=== PATIENT | male | born 1945 | race Caucasian/White ===

== ENCOUNTER 2023-12-02 20:01 | Inpatient (IN) | payer MEDICARE ==
[~2023-12-02] VITALS: Ht 170.2 cm; Wt 116.2 kg
[~2023-12-02 20:01] MED LIST: ROPIVACAINE 0.5% 5 MG/ML 30 ML SDV ONE
[2023-12-02] MEDS ORDERED: DEXTROSE 50% SYRINGE 50 ML IV ONE (20:24)
[2023-12-02] MEDS ORDERED: DEXTROSE 5%/0.45% SOD CHL 1,000 ML IV ONE (20:24)
[2023-12-02] MEDS: DEXTROSE 50% SYRINGE 50 ML IV STA ×2 (20:30→22:07)
[2023-12-02] MEDS: DEXTROSE 5%/0.45% SOD CHL 1,000 ML IV ONE (20:31)
[2023-12-02] MEDS ORDERED: SODIUM CHLORIDE 0.9% 1000ML 1,000 ML ONE (20:37)
[2023-12-02] MEDS: SODIUM CHLORIDE 0.9% 1000ML 1,000 ML IV ONE (20:37)
[2023-12-02 20:57] LABS: BASOPHILS % 0.2 % (0.0-1.0); EOSINOPHILS % 0.3 % (0.0-6.0); HEMATOCRIT 28.6 % (38.2-49.6); HEMOGLOBIN 9.3 g/dL (14.0-18.0); LYMPHOCYTES # (AUTO) 1.2 (1.0-3.2); LYMPHOCYTES % 12.7 % (18.0-39.1); MEAN CORPUSCULAR HEMOGLOBIN 25.1 pg (28-32); MEAN CORPUSCULAR HGB CONC 32.5 g/dL (31-35); MEAN CORPUSCULAR VOLUME 77.1 fL (81-99); MONOCYTES # (AUTO) 0.6 (0.2-0.8); MONOCYTES % 6.2 % (4.4-11.3); NEUTROPHILS # (AUTO) 7.6 (2.1-6.9); PLATELET COUNT 329 x10e3/uL (140-360); RED BLOOD COUNT 3.71 x10e6/uL (4.3-5.7); RED CELL DISTRIBUTION WIDTH 16.6 % (11.7-14.4); WHITE BLOOD COUNT 9.51 x10e3/uL (4.8-10.8)
[2023-12-02 21:24] LABS: ALBUMIN 2.9 g/dL (3.5-5.0); ALBUMIN/GLOBULIN RATIO 0.6 (0.8-2.0); ANION GAP 17.5 mmol/L (8-16); BILIRUBIN,TOTAL 0.4 mg/dL (0.2-1.2); CALCIUM 9.2 mg/dL (8.4-10.2); CREATININE, SERUM 7.42 mg/dL (0.72-1.25); TOTAL PROTEIN 7.5 g/dL (6.5-8.1)
[2023-12-02 21:26] LABS: POTASSIUM 6.5 mmol/L (3.5-5.1)
[2023-12-02] MEDS: Vancomycin IV 1 GM in SODIUM CHLORIDE 0.9% 250ML 250 ML IV ONE (21:34)
[2023-12-02] MEDS: SODIUM BICARBONATE 8.4% INJ 50 ML SYR IV STA (22:04)
[2023-12-02] MEDS: CALCIUM CHLORIDE 10% 1.36 MEQ/ML 10ML SYR IV STA (22:05)
[2023-12-02] MEDS: INSULIN REGULAR, HUMAN 100 UNIT/1 ML IV ONE (22:08)
[2023-12-02] MEDS: SOD POLYSTYRENE SULFONATE SUSP 15 GM/60 ML BTL PO ONE (22:09)
[2023-12-02] MEDS ORDERED: DEXTROSE 50% SYRINGE 50 ML IV PRN (22:45)
[2023-12-02] MEDS ORDERED: SODIUM CHLORIDE FLUSH 10 ML SYR INJ PRN (22:45)
[2023-12-02] MEDS ORDERED: ONDANSETRON HCL INJ 2MG/ML 2ML 2 MG/ML VIAL IV PRN (22:45)
[2023-12-02] MEDS ORDERED: SODIUM BICARB 4.2% 150 MEQ in DEXTROSE 5% 1,000 ML IV SCH (22:45)
[2023-12-02] MEDS ORDERED: DEXTROSE 5% 1,000 ML IV ONE (23:01)
[2023-12-02 23:10] LABS: BILIRUBIN,URINE NEGATIVE (NEGATIVE); CLARITY,URINE CLEAR (CLEAR); COLOR,URINE YELLOW (YELLOW); GLUCOSE, URINE NEGATIVE (NEGATIVE); KETONES,URINE NEGATIVE (NEGATIVE); LEUKOCYTE ESTERASE ,URINE NEGATIVE (NEGATIVE); NITRITE,URINE NEGATIVE (NEGATIVE); PH,URINE 5.5 (5 - 7); PROTEIN,URINE DIPSTICK 1+ (NEGATIVE); URINE UROBILINOGEN 0.2 mg/dL (0.2 - 1)
[2023-12-02] MEDS: SODIUM BICARBONATE 8.4% SYRING 150 ML in DEXTROSE 5% 1,000 ML IV SCH (23:24)
[2023-12-02 23:44] LABS: BACTERIA,URINE MODERATE /HPF; EPITHELIAL CELLS,URINE FEW /LPF; RBC,URINE 0-5 /HPF (0-5); WBC,URINE (MAN) 0-5 /HPF (0-5)
[2023-12-02 23:45] VITALS: PULSE 95; RESP 15; O2SAT 92
[2023-12-02 23:51] VITALS: BP 155/58; PULSE 115; RESP 21; O2SAT 94
[2023-12-03] VITALS (32 sets, daily range): BP systolic 89–166; BP diastolic 39–113; PULSE 97–119; RESP 13–23; TEMP 97.4–98.7; O2SAT 90–100
[2023-12-03] MEDS ORDERED: ATORVASTATIN CA20 MG PO (00:38)
[2023-12-03] MEDS ORDERED: AMLODIPINE BESY10 MG PO (00:43)
[2023-12-03] MEDS ORDERED: GLIPIZIDE ER5 MG PO (00:43)
[2023-12-03] MEDS ORDERED: BENAZEPRIL HCL10 MG PO (00:43)
[2023-12-03] MEDS ORDERED: ASPIRIN81 MG PO (00:43)
[2023-12-03] MEDS ORDERED: ELIQUIS5 MG PO (00:43)
[2023-12-03] MEDS ORDERED: LASIX20 MG PO (00:43)
[2023-12-03] MEDS ORDERED: METOPROLOL TART25 MG PO (00:43)
[2023-12-03] MEDS ORDERED: PIOGLITAZONE HC45 MG PO (00:43)
[2023-12-03] MEDS ORDERED: TRINTELLIX10 MG PO (00:43)
[2023-12-03 06:41] LABS: BASOPHILS % 0.2 % (0.0-1.0); EOSINOPHILS % 0.4 % (0.0-6.0); HEMATOCRIT 28.1 % (38.2-49.6); HEMOGLOBIN 8.9 g/dL (14.0-18.0); LYMPHOCYTES # (AUTO) 1.2 (1.0-3.2); LYMPHOCYTES % 11.5 % (18.0-39.1); MEAN CORPUSCULAR HEMOGLOBIN 24.3 pg (28-32); MEAN CORPUSCULAR HGB CONC 31.7 g/dL (31-35); MEAN CORPUSCULAR VOLUME 76.8 fL (81-99); MONOCYTES # (AUTO) 1.1 (0.2-0.8); MONOCYTES % 10.2 % (4.4-11.3); NEUTROPHILS # (AUTO) 8.1 (2.1-6.9); PLATELET COUNT 288 x10e3/uL (140-360); RED BLOOD COUNT 3.66 x10e6/uL (4.3-5.7); RED CELL DISTRIBUTION WIDTH 16.1 % (11.7-14.4); WHITE BLOOD COUNT 10.54 x10e3/uL (4.8-10.8)
[2023-12-03 07:13] LABS: ALBUMIN 2.4 g/dL (3.5-5.0); ALBUMIN/GLOBULIN RATIO 0.6 (0.8-2.0); ANION GAP 16.6 mmol/L (8-16); BILIRUBIN,TOTAL 0.5 mg/dL (0.2-1.2); CREATININE, SERUM 6.24 mg/dL (0.72-1.25); TOTAL PROTEIN 6.3 g/dL (6.5-8.1)
[2023-12-03 07:14] LABS: POTASSIUM 5.6 mmol/L (3.5-5.1)
[2023-12-03] MEDS: INSULIN REGULAR, HUMAN 100 UNIT/1 ML SQ SCH (07:30)
[2023-12-03 07:37] LABS: TROPONIN I 0.001 ng/mL (0-0.300)
[2023-12-03 08:39] LABS: INR 1.16; PROTHROMBIN TIME 15.6 seconds (11.9-14.5)
[2023-12-03] MEDS: DEXTROSE 50% SYRINGE 50 ML IV ONE (08:50)
[2023-12-03] MEDS: INSULIN REGULAR, HUMAN 100 UNIT/1 ML IV ONE (08:51)
[2023-12-03] MEDS ORDERED: ACETAMINOPHEN 325 MG TAB PO PRN (10:00)
[2023-12-03] MEDS ORDERED: LIDOCAINE HCL 1% LOCAL INJ 20 ML VIAL ONE (10:22)
[2023-12-03] MEDS ORDERED: SODIUM CHLORIDE 0.9% 500ML 500 ML ONE (10:23)
[2023-12-03] MEDS ORDERED: MIDAZOLAM HCL 2 MG/2 ML VIAL ONE (12:19)
[2023-12-03] MEDS ORDERED: HEPARIN SOD (PORCINE) 1000 UNIT/ML SDV ONE (12:19)
[2023-12-03] MEDS ORDERED: FENTANYL CITRATE/PF 100MCG/2 ML INJ ONE (12:20)
[2023-12-03] MEDS ORDERED: SODIUM CHLORIDE 0.9% 250ML 250 ML ONE (12:20)
[2023-12-03] MEDS ORDERED: SODIUM CHLORIDE 0.9% 1000ML 2,000 ML IV PRN (14:30)
[2023-12-03] MEDS ORDERED: ALBUMIN 25% 12.5GM 0.25 GM/ML BTL IV PRN (14:30)
[2023-12-03] MEDS ORDERED: MANNITOL 25% 12.5GM/50 ML VIAL IV PRN (14:30)
[2023-12-03] MEDS: SODIUM BICARBONATE 650 MG TAB PO SCH (14:33)
[2023-12-03 16:24] LABS: TROPONIN I 0.001 ng/mL (0-0.300)
[2023-12-03] MEDS: METOPROLOL TARTRATE 25 MG TAB PO SCH (17:29)
[2023-12-03] MEDS: FLUTICASONE PROPIONATE NASAL SPRAY NS SCH (17:29)
[2023-12-03] MEDS: ATORVASTATIN 20 MG TAB PO SCH (20:07)
[2023-12-04] VITALS (30 sets, daily range): BP systolic 93–131; BP diastolic 49–85; PULSE 73–117; RESP 11–26; TEMP 97.9–98.2; O2SAT 87–100
[2023-12-04 06:31] LABS: BASOPHILS % 0.5 % (0.0-1.0); EOSINOPHILS # (AUTO) 0.2 (0.0-0.4); EOSINOPHILS % 2.2 % (0.0-6.0); HEMATOCRIT 27.2 % (38.2-49.6); HEMOGLOBIN 9.4 g/dL (14.0-18.0); LYMPHOCYTES # (AUTO) 1.8 (1.0-3.2); LYMPHOCYTES % 20.9 % (18.0-39.1); MEAN CORPUSCULAR HEMOGLOBIN 25.3 pg (28-32); MEAN CORPUSCULAR HGB CONC 34.6 g/dL (31-35); MEAN CORPUSCULAR VOLUME 73.3 fL (81-99); MONOCYTES # (AUTO) 0.8 (0.2-0.8); MONOCYTES % 9.6 % (4.4-11.3); NEUTROPHILS # (AUTO) 5.8 (2.1-6.9); NEUTROPHILS % 66.5 % (38.7-80.0); PLATELET COUNT 281 x10e3/uL (140-360); RED BLOOD COUNT 3.71 x10e6/uL (4.3-5.7); RED CELL DISTRIBUTION WIDTH 16.3 % (11.7-14.4); WHITE BLOOD COUNT 8.76 x10e3/uL (4.8-10.8)
[2023-12-04 06:55] LABS: ANION GAP 14.9 mmol/L (8-16); CALCIUM 8.5 mg/dL (8.4-10.2); CREATININE, SERUM 3.07 mg/dL (0.72-1.25); POTASSIUM 3.9 mmol/L (3.5-5.1)
[2023-12-04 07:22] LABS: THYROID STIMULATING HORMONE 0.881 uIU/mL (0.350-4.940)
[2023-12-04] MEDS: ASPIRIN 81 MG CHEW TAB PO SCH (08:29)
[2023-12-04 13:34] LABS: HEPATITIS B SURFACE AG (P) Negative (Negative)
[2023-12-04] MEDS: CHOLESTYRAMINE 4 GM PACKET PO SCH (16:24)
[2023-12-04] MEDS: HEPARIN SOD (PORCINE) 5,000 UNIT/ML VIAL SC SCH (20:48)
[2023-12-04] MEDS: ALTEPLASE RECOMBINANT 2 MG/2 ML VIAL IV ONE (20:51)
[2023-12-05] VITALS (26 sets, daily range): BP systolic 103–143; BP diastolic 35–82; PULSE 87–111; RESP 11–24; TEMP 97.9–98.4; O2SAT 92–100
[2023-12-05 05:28] LABS: ALBUMIN 2.4 g/dL (3.5-5.0); ALBUMIN/GLOBULIN RATIO 0.6 (0.8-2.0); BILIRUBIN,TOTAL 0.6 mg/dL (0.2-1.2); CALCIUM 8.3 mg/dL (8.4-10.2); CREATININE, SERUM 2.2 mg/dL (0.72-1.25); TOTAL PROTEIN 6.5 g/dL (6.5-8.1)
[2023-12-05] MEDS ORDERED: SODIUM CHLORIDE 0.9% 250ML 250 ML ONE (08:34)
[2023-12-05] MEDS ORDERED: REGADENOSON 0.4 MG/5 ML SYR IV ONE (10:53)
[2023-12-05] MEDS ORDERED: AMIODARONE HCL 200 MG TAB ONE (14:28)
[2023-12-05] MEDS: AMIODARONE HCL 200 MG TAB PO ONE (14:31)
[2023-12-05] MEDS: AMIODARONE HCL 200 MG TAB PO SCH (16:08)
[2023-12-06] VITALS (27 sets, daily range): BP systolic 105–142; BP diastolic 46–76; PULSE 80–108; RESP 9–21; TEMP 97.2–98.4; O2SAT 96–100
[2023-12-06 06:24] LABS: ALBUMIN 2.5 g/dL (3.5-5.0); ALBUMIN/GLOBULIN RATIO 0.6 (0.8-2.0); ANION GAP 13.7 mmol/L (8-16); BILIRUBIN,TOTAL 0.5 mg/dL (0.2-1.2); CALCIUM 8.5 mg/dL (8.4-10.2); CREATININE, SERUM 1.85 mg/dL (0.72-1.25); POTASSIUM 3.7 mmol/L (3.5-5.1); TOTAL PROTEIN 6.8 g/dL (6.5-8.1)
[2023-12-06] MEDS ORDERED: AMIODARONE HCL 200 MG TAB ONE ×2 (08:02→16:30)
[2023-12-06] MEDS: TRIAMCINOLONE ACET 0.1% CREAM 15 GM TUBE TOP SCH (16:00)
[2023-12-06] MEDS ORDERED: METOPROLOL SUCCINATE 25 MG TAB XL ONE (16:30)
[2023-12-06] MEDS ORDERED: CHOLESTYRAMINE 4 GM PACKET ONE (16:30)
[2023-12-06] MEDS ORDERED: METOPROLOL TARTRATE 25 MG TAB ONE (17:08)
[2023-12-06] MEDS ORDERED: ATORVASTATIN 40 MG TAB ONE (20:10)
[2023-12-06] MEDS ORDERED: HEPARIN SOD (PORCINE) 1000 UNIT/ML SDV ONE (20:11)
[2023-12-06] MEDS ORDERED: INSULIN REGULAR, HUMAN 100 UNIT/1 ML ONE (20:12)
[2023-12-06] MEDS ORDERED: ATORVASTATIN 20 MG TAB ONE (20:18)
[2023-12-06] MEDS ORDERED: HEPARIN SOD (PORCINE) 5,000 UNIT/ML VIAL ONE (20:28)
[2023-12-07] VITALS (7 sets, daily range): BP systolic 117–129; BP diastolic 57–73; PULSE 81–92; RESP 17–20; TEMP 97–98.6; O2SAT 96–100
[2023-12-07 06:26] LABS: ANION GAP 15.7 mmol/L (8-16); CALCIUM 8.6 mg/dL (8.4-10.2); CREATININE, SERUM 2.21 mg/dL (0.72-1.25); POTASSIUM 3.7 mmol/L (3.5-5.1)
[2023-12-07 06:36] LABS: BASOPHILS # (AUTO) 0.1 (0.0-0.1); BASOPHILS % 0.6 % (0.0-1.0); EOSINOPHILS # (AUTO) 0.3 (0.0-0.4); EOSINOPHILS % 3.9 % (0.0-6.0); HEMATOCRIT 27.5 % (38.2-49.6); HEMOGLOBIN 8.9 g/dL (14.0-18.0); LYMPHOCYTES # (AUTO) 1.9 (1.0-3.2); LYMPHOCYTES % 23.3 % (18.0-39.1); MEAN CORPUSCULAR HEMOGLOBIN 24.7 pg (28-32); MEAN CORPUSCULAR HGB CONC 32.4 g/dL (31-35); MEAN CORPUSCULAR VOLUME 76.4 fL (81-99); MONOCYTES # (AUTO) 0.7 (0.2-0.8); MONOCYTES % 9.2 % (4.4-11.3); NEUTROPHILS % 61.9 % (38.7-80.0); PLATELET COUNT 262 x10e3/uL (140-360); RED CELL DISTRIBUTION WIDTH 15.9 % (11.7-14.4); WHITE BLOOD COUNT 8.04 x10e3/uL (4.8-10.8)
[2023-12-07] MEDS ORDERED: AMIODARONE HCL 200 MG TAB ONE ×2 (08:10→16:01)
[2023-12-07] MEDS ORDERED: ASPIRIN 81 MG ENTERIC COATED PO ONE (08:11)
[2023-12-07] MEDS ORDERED: HEPARIN SOD (PORCINE) 5,000 UNIT/ML VIAL ONE ×2 (08:11→20:40)
[2023-12-07] MEDS ORDERED: METOPROLOL SUCCINATE 25 MG TAB XL ONE (08:11)
[2023-12-07] MEDS ORDERED: HEPARIN SOD (PORCINE) 1000 UNIT/ML SDV ONE (09:20)
[2023-12-07] MEDS ORDERED: ASPIRIN 81 MG CHEW TAB ONE (09:21)
[2023-12-07] MEDS: LORAZEPAM 0.5 MG TAB PO SCH (09:21)
[2023-12-07] MEDS ORDERED: LORAZEPAM 0.5 MG TAB ONE (09:21)
[2023-12-07] MEDS ORDERED: CHOLESTYRAMINE 4 GM PACKET ONE (09:22)
[2023-12-07] MEDS: HEPARIN SOD (PORCINE) 1000 UNIT/ML SDV IV PRN (09:25)
[2023-12-07] MEDS ORDERED: SODIUM CHLORIDE 0.9% 1000ML 1,000 ML ONE (09:48)
[2023-12-07] MEDS ORDERED: METOPROLOL TARTRATE 25 MG TAB ONE (16:02)
[2023-12-07] MEDS ORDERED: ATORVASTATIN 40 MG TAB ONE (20:39)
[2023-12-07] MEDS ORDERED: ATORVASTATIN 20 MG TAB ONE (20:55)
[2023-12-08] VITALS (8 sets, daily range): BP systolic 118–139; BP diastolic 56–68; PULSE 71–82; RESP 17–20; TEMP 97.5–98.5; O2SAT 95–98
[2023-12-08] MEDS ORDERED: LIDOCAINE HCL 2% LOCAL INJ 5 ML SDV VIAL INJ ONE (10:43)
[2023-12-08] MEDS ORDERED: PROPOFOL IV EMULSION 10 MG/ML 20 ML VIAL ONE (10:43)
[2023-12-08] MEDS ORDERED: PHENYLEPHRINE HCL 1% 10 MG/ML VIAL ONE (10:43)
[2023-12-08 10:59] LABS: ALBUMIN 2.5 g/dL (3.5-5.0); ALBUMIN/GLOBULIN RATIO 0.6 (0.8-2.0); ANION GAP 13.9 mmol/L (8-16); BILIRUBIN,TOTAL 0.4 mg/dL (0.2-1.2); CALCIUM 8.7 mg/dL (8.4-10.2); CREATININE, SERUM 2.21 mg/dL (0.72-1.25); POTASSIUM 3.9 mmol/L (3.5-5.1); TOTAL PROTEIN 6.5 g/dL (6.5-8.1)
[2023-12-08 11:04] LABS: INR 0.99; PROTHROMBIN TIME 13.8 seconds (11.9-14.5)
[2023-12-08] MEDS ORDERED: HEPARIN SOD (PORCINE) 5,000 UNIT/ML VIAL ONE ×2 (12:03→19:07)
[2023-12-08] MEDS ORDERED: SODIUM CHLORIDE 0.9% 0 ML ONE (12:04)
[2023-12-08] MEDS ORDERED: ROPIVACAINE 0.5% 5 MG/ML 30 ML SDV ONE ×2 (12:04→19:07)
[2023-12-08] MEDS ORDERED: EPINEPHRINE HCL 1:1000 1ML 1 MG/ML AMP ONE ×2 (12:05→19:07)
[2023-12-08] MEDS ORDERED: HEPARIN SOD (PORCINE) 1000 UNIT/ML SDV ONE (12:38)
[2023-12-08] MEDS ORDERED: LIDOCAINE HCL 1% 30ML-PF VIAL ONE (12:38)
[2023-12-08] MEDS ORDERED: ONDANSETRON HCL 4 MG ORAL DISINTEGRATING TAB PO PRN (13:00)
[2023-12-08] MEDS ORDERED: HYDROCODONE/APAP 5MG-325MG TAB PO PRN (14:45)
[2023-12-08] MEDS ORDERED: FENTANYL CITRATE/PF 100MCG/2 ML INJ ONE (15:56)
[2023-12-08] MEDS: HEPARIN SOD (PORCINE) 1000 UNIT/ML SDV IV ONE (16:11)
[2023-12-08] MEDS: LIDOCAINE HCL 1% 30ML-PF VIAL IV ONE (16:11)
[2023-12-08] MEDS ORDERED: SODIUM CHLORIDE 0.9% INJ 100 ML BAG ONE (19:07)
[2023-12-09] VITALS (9 sets, daily range): BP systolic 113–140; BP diastolic 54–73; PULSE 74–93; RESP 18–21; TEMP 97.7–98.2; O2SAT 96–100
[2023-12-09 05:29] LABS: BASOPHILS % 0.4 % (0.0-1.0); EOSINOPHILS # (AUTO) 0.3 (0.0-0.4); EOSINOPHILS % 2.8 % (0.0-6.0); HEMATOCRIT 28.7 % (38.2-49.6); HEMOGLOBIN 8.7 g/dL (14.0-18.0); LYMPHOCYTES # (AUTO) 1.5 (1.0-3.2); LYMPHOCYTES % 15.9 % (18.0-39.1); MEAN CORPUSCULAR HEMOGLOBIN 24.2 pg (28-32); MEAN CORPUSCULAR HGB CONC 30.3 g/dL (31-35); MEAN CORPUSCULAR VOLUME 79.7 fL (81-99); MONOCYTES # (AUTO) 0.8 (0.2-0.8); MONOCYTES % 8.4 % (4.4-11.3); NEUTROPHILS # (AUTO) 6.8 (2.1-6.9); NEUTROPHILS % 70.9 % (38.7-80.0); PLATELET COUNT 252 x10e3/uL (140-360); WHITE BLOOD COUNT 9.62 x10e3/uL (4.8-10.8)
[2023-12-09 05:57] LABS: ALBUMIN 2.5 g/dL (3.5-5.0); ALBUMIN/GLOBULIN RATIO 0.6 (0.8-2.0); BILIRUBIN,TOTAL 0.3 mg/dL (0.2-1.2); CALCIUM 8.7 mg/dL (8.4-10.2); CREATININE, SERUM 2.49 mg/dL (0.72-1.25); TOTAL PROTEIN 6.4 g/dL (6.5-8.1)
[2023-12-09] MEDS ORDERED: HEPARIN SOD (PORCINE) 5,000 UNIT/ML VIAL ONE ×2 (10:16→12:29)
[2023-12-09] MEDS ORDERED: HEPARIN SOD (PORCINE) 1000 UNIT/ML SDV ONE ×2 (10:16→13:15)
[2023-12-09] MEDS ORDERED: ATORVASTATIN 20 MG TAB ONE (10:16)
[2023-12-09] MEDS ORDERED: CHOLESTYRAMINE 4 GM PACKET ONE (10:16)
[2023-12-09] MEDS ORDERED: SODIUM CHLORIDE 0.9% 1000 ML BAG ONE (10:16)
[2023-12-09] MEDS ORDERED: ROPIVACAINE 0.5% 5 MG/ML 30 ML SDV ONE (12:29)
[2023-12-09] MEDS ORDERED: EPINEPHRINE HCL 1:1000 1ML 1 MG/ML AMP ONE (12:29)
[2023-12-09] MEDS ORDERED: LIDOCAINE HCL 1% 30ML-PF VIAL ONE (13:15)
[2023-12-10 04:03] VITALS: BP 118/53; PULSE 66; RESP 18; TEMP 98.3; O2SAT 96
[2023-12-10 07:42] VITALS: BP 145/72; PULSE 77; RESP 17; TEMP 98.3; O2SAT 98
[2023-12-10 08:00] VITALS: BP 145/72; PULSE 77; RESP 17; TEMP 98.3; O2SAT 98
[2023-12-10] MEDS ORDERED: ASPIRIN 81 MG ENTERIC COATED PO ONE ×2 (08:10→17:40)
[2023-12-10] MEDS ORDERED: METOPROLOL TARTRATE 25 MG TAB ONE ×2 (08:11→17:40)
[2023-12-10] MEDS ORDERED: CHOLESTYRAMINE 4 GM PACKET ONE ×2 (08:12→17:40)
[2023-12-10] MEDS ORDERED: AMIODARONE HCL 200 MG TAB ONE ×2 (08:13→17:40)
[2023-12-10] MEDS ORDERED: HEPARIN SOD (PORCINE) 5,000 UNIT/ML VIAL ONE ×2 (08:53→17:40)
[2023-12-10] MEDS ORDERED: AMIODARONE HCL200 MG PO (10:42)
[2023-12-10 12:14] VITALS: BP 109/61; PULSE 78; RESP 19; TEMP 98.5; O2SAT 99
[2023-12-10] MEDS ORDERED: APIXABAN 2.5 MG TABLET PO SCH (17:00)
[2023-12-10] MEDS ORDERED: ATORVASTATIN 40 MG TAB PO SCH (21:00)
[2023-12-11] MEDS ORDERED: AMIODARONE HCL 200 MG TAB PO SCH (09:00)
== END 2023-12-10 13:54 | DRG 674 ==
LOC: ER 20:06 → ERHOLD 22:47 → ICU 23:32 → MED/SURG2 12-06 16:07
PROVIDERS: ADMIT Internal Medicine; ATTEND Internal Medicine
PROC: 0T9B70Z Drainage of Bladder with Drainage Device, Via Natural or Artificial Opening (ICD-10-PCS; 2023-12-02)
PROC: 0JH63XZ Insertion of Tunneled Vascular Access Device into Chest Subcutaneous Tissue and Fascia, Percutaneous Approach (ICD-10-PCS; 2023-12-03)
PROC: 02H633Z Insertion of Infusion Device into Right Atrium, Percutaneous Approach (ICD-10-PCS; 2023-12-03)
PROC: 5A1D70Z Performance of Urinary Filtration, Intermittent, Less than 6 Hours Per Day (ICD-10-PCS; 2023-12-03)
PROC: 03180ZD Bypass Left Brachial Artery to Upper Arm Vein, Open Approach (ICD-10-PCS; principal; 2023-12-08 13:37)
DX: N17.9 Acute kidney failure, unspecified (principal); E87.20 Acidosis, unspecified; L03.115 Cellulitis of right lower limb; I13.2 Hypertensive heart and chronic kidney disease with heart failure and with stage 5 chronic kidney disease, or end stage renal disease; I50.30 Unspecified diastolic (congestive) heart failure; E11.22 Type 2 diabetes mellitus with diabetic chronic kidney disease; N18.6 End stage renal disease; E11.649 Type 2 diabetes mellitus with hypoglycemia without coma; E11.51 Type 2 diabetes mellitus with diabetic peripheral angiopathy without gangrene; E11.40 Type 2 diabetes mellitus with diabetic neuropathy, unspecified; D50.9 Iron deficiency anemia, unspecified; I48.0 Paroxysmal atrial fibrillation; E78.00 Pure hypercholesterolemia, unspecified; Z11.52 Encounter for screening for COVID-19; F32.A Depression, unspecified; E87.5 Hyperkalemia; R19.7 Diarrhea, unspecified; I25.10 Atherosclerotic heart disease of native coronary artery without angina pectoris; I83.11 Varicose veins of right lower extremity with inflammation; I83.12 Varicose veins of left lower extremity with inflammation; R33.9 Retention of urine, unspecified; E86.1 Hypovolemia; I89.0 Lymphedema, not elsewhere classified; R53.81 Other malaise; E66.01 Morbid (severe) obesity due to excess calories; Z68.37 Body mass index [BMI] 37.0-37.9, adult; Z79.4 Long term (current) use of insulin; Z79.01 Long term (current) use of anticoagulants; Z79.82 Long term (current) use of aspirin; Z79.84 Long term (current) use of oral hypoglycemic drugs; Z86.711 Personal history of pulmonary embolism; Z86.718 Personal history of other venous thrombosis and embolism; Z86.73 Personal history of transient ischemic attack (TIA), and cerebral infarction without residual deficits; H54.62 Unqualified visual loss, left eye, normal vision right eye; Z83.3 Family history of diabetes mellitus; Z82.49 Family history of ischemic heart disease and other diseases of the circulatory system
CPT/HCPCS: 36415; 36558; 36581; 51700; 70450; 71045; 74470; 76770; 76937; 77001; 78452; 80048; 80053; 80061; 81001; 82550; 82948; 83036; 83605; 84443; 84484; 85025; 85610; 86704; 86706; 87040; 87340; 87400; 93005; 93017; 93306; 93970; 94799; 96372; 99152; 99252; 99285; A9502; C1769; C1892; J0171; J0690; J0696; J1644; J2001; J2150; J2250; J2371; J2543; J2795; J2997; J7030; J7040; J7050; J7070; J7799; U0002

== ENCOUNTER 2024-07-27 20:44 | Emergency (ER) | payer MEDICARE ==
[~2024-07-27] VITALS: Ht 170.2 cm; Wt 116.1 kg
[~2024-07-27 20:44] MED LIST changes: +AMIODARONE HCL200 MG PO; +AMLODIPINE BESY10 MG PO; +ASPIRIN81 MG PO; +ATORVASTATIN CA20 MG PO; +BENAZEPRIL HCL10 MG PO; +ELIQUIS5 MG PO; +GLIPIZIDE ER5 MG PO; +LASIX20 MG PO; +METOPROLOL TART25 MG PO; +PIOGLITAZONE HC45 MG PO; -ROPIVACAINE 0.5% 5 MG/ML 30 ML SDV ONE; +TRINTELLIX10 MG PO
[2024-07-27] MEDS ORDERED: BENZONATATE100 MG PO (22:33)
[2024-07-27 22:45] VITALS: PULSE 70; RESP 18; TEMP 98.3; O2SAT 98
== END 2024-07-27 22:45 | disposition home or self-care (01) ==
LOC: FSED 21:19
DX: R06.02 Shortness of breath (principal); J11.1 Influenza due to unidentified influenza virus with other respiratory manifestations; R05.9 Cough, unspecified; I12.0 Hypertensive chronic kidney disease with stage 5 chronic kidney disease or end stage renal disease; E11.22 Type 2 diabetes mellitus with diabetic chronic kidney disease; N18.6 End stage renal disease; Z99.2 Dependence on renal dialysis; E78.5 Hyperlipidemia, unspecified; H54.62 Unqualified visual loss, left eye, normal vision right eye; I25.10 Atherosclerotic heart disease of native coronary artery without angina pectoris; Z86.73 Personal history of transient ischemic attack (TIA), and cerebral infarction without residual deficits; Z86.718 Personal history of other venous thrombosis and embolism; Z87.19 Personal history of other diseases of the digestive system
CPT/HCPCS: 71046; 99283